=== PATIENT | female | born 1950 | race Caucasian/White ===

== ENCOUNTER 2019-07-26 11:07 | Emergency (ER) | payer MEDICARE, OTHER ==
[~2019-07-26] VITALS: Ht 149.9 cm; Wt 63.0 kg
[~2019-07-26 11:07] MED LIST: ENAL-197 PO; OMEP-113 PO
[2019-07-26 11:21] VITALS: BP 118/67
--- NOTE | 2019-07-26 11:25 | NUR ---
Patient ambulated to bed 10. RN evaluating patient at bedside.
--- NOTE | 2019-07-26 11:38 | NUR ---
PT PRESENTS TO ED WITH C/O LOWER ABD PAIN THAT RADIATES TO LOWER ABD X 1 DAY. PT STATES PAIN IS SHARP AND RATES PAIN 8/10 AT THIS TIME. PT STATES THAT SHE IS EXPERIENCING PAIN WITH URINATING X 1 DAY. PT STATES N/V X 3 DAYS, LAST EPISODE WAS 07/25/19. ER MD TO SEE PT. UZIEL HX: HTN RX: AMLODIPINE, ENALAPRIL, AND HYDROCHLOROTHIZAIDE
[2019-07-26] MEDS ORDERED: KETOROLAC 15 MG/ML VIAL IVP ONE (12:10)
[2019-07-26 12:38] LABS: BASOPHILS % (AUTO) 0.2 % (0.0-2.0); EOSINOPHILS % (AUTO) 0.1 % (0.0-4.0); HEMATOCRIT 41.1 % (36-48); HEMOGLOBIN 13.6 g/dL (12.0-16.0); LYMPHOCYTES # (AUTO) 2.2 K/uL (2.5-16.5); LYMPHOCYTES % (AUTO) 17.6 % (20.5-51.1); MEAN CORPUSCULAR HEMOGLOBIN 28 pg (27-31); MEAN CORPUSCULAR HGB CONC 33 g/dL (33-37); MEAN CORPUSCULAR VOLUME 85.4 fL (80-94); MONOCYTES # (AUTO) 0.8 K/uL (0.8-1.0); MONOCYTES % (AUTO) 6.4 % (1.7-9.3); NEUTROPHILS # (AUTO) 9.5 K/uL (1.8-7.7); NEUTROPHILS % (AUTO) 75.7 % (42.2-75.2); PLATELET COUNT (AUTO) 242 K/uL (140-450); RED BLOOD CELL COUNT(AUTO) 4.82 MIL/uL (4.20-5.40); RED CELL DISTRIBUTION WIDTH 13.8 % (11.6-13.7); WHITE BLOOD COUNT (AUTO) 12.5 K/uL (4.8-10.8)
[2019-07-26] MEDS ORDERED: AMLO10TA4 PO (12:46)
[2019-07-26] MEDS ORDERED: DOCU100C16 PO (12:46)
[2019-07-26] MEDS ORDERED: ATOR20TA PO (12:46)
[2019-07-26] MEDS ORDERED: LISI-420 PO (12:46)
[2019-07-26] MEDS ORDERED: METO25TA PO (12:46)
[2019-07-26 12:59] LABS: ALBUMIN 3.6 g/dL (3.4-5.0); CREATININE 0.9 mg/dL (0.6-1.3); POTASSIUM 3.2 mmol/L (3.5-5.1)
[2019-07-26 13:16] LABS: ANION GAP 13.1 (8-16); CARBON DIOXIDE 28.1 mmol/L (21-32)
[2019-07-26] MEDS ORDERED: NACL 0.9% 1,000 ML IV ONE (13:25)
--- NOTE | 2019-07-26 15:00 | NUR ---
PT SLEEPING AT BEDSIDE, ABLE TO VISUALIZE RISE AND FALL OF CHEST. WILL CONTINUE TO MONITOR.
[2019-07-26 15:22] VITALS: BP 118/67
--- NOTE | 2019-07-26 15:22 | NUR ---
Patient discharged with v/s stable. Written and verbal after care instructions given and explained. Patient verbalized understanding. Ambulatory with steady gait. All questions addressed prior to discharge. Advised to follow up with PMD.
--- NOTE | 2019-07-26 15:22 | NUR ---
IV removed, catheter intact and site benign. Applied folded 4x4 gauze and tape to stop bleeding.
--- NOTE | 2019-08-01 12:03 | NUR ---
Late entry. Confirmed with RN that 0.9 NS 100ml/hr IV completed at 1520
== END 2019-07-26 15:22 | disposition home or self-care (01) ==
LOC: MED 11:07
DX: R10.30 Lower abdominal pain, unspecified (principal); E87.6 Hypokalemia; E86.0 Dehydration; K21.9 Gastro-esophageal reflux disease without esophagitis; I11.0 Hypertensive heart disease with heart failure; I50.9 Heart failure, unspecified; Z87.448 Personal history of other diseases of urinary system; Z90.49 Acquired absence of other specified parts of digestive tract; Z98.890 Other specified postprocedural states
CPT/HCPCS: 36415; 74176; 80053; 81002; 83690; 85025; 96361; 96374; 99284; J1885

== ENCOUNTER 2019-07-26 23:38 | Emergency (ER) | payer MEDICARE, OTHER ==
[~2019-07-26] VITALS: Ht 154.9 cm; Wt 63.0 kg
[~2019-07-26 23:38] MED LIST changes: +AMLO10TA4 PO; +ATOR20TA PO; +DOCU100C16 PO; +LISI-420 PO; +METO25TA PO
[2019-07-26 23:40] VITALS: BP 120/74
--- NOTE | 2019-07-26 23:50 | NUR ---
SENT TO [facility]. S. SPECIMEN CUP GIVEN FOR URINE SAMPLE.
--- NOTE | 2019-07-27 00:18 | NUR ---
PT AMBULATED TO BED 04
--- NOTE | 2019-07-27 00:32 | NUR ---
69 Y/O FEMALE PRESENTS TO ED, C/O LOWER ABDOMINAL PAIN 04/30. PT STATES COMING TO THE ED AT 1100 FOR THE SAME REASON, D/C WITH AND DX WITH GERNERALIZED ABDOMINAL PAIN, NO RX PROVIDED. PT STATES PAIN WORSENED. PT TOOK 400 MG MOTRIN PRIOR TO FIRST VISIT AT ED. STATES HAVING BURNING SENSATION VOIDING. PAIN DOES NOT RADIATE. BS ACTIVE X4 QUADRANTS. ABD SOFT AND TENDER ON PALPATION. C/O INTERMITTENT DIARREAH SINCE LAST THURSDAY. 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
[2019-07-27 01:38] LABS: APPEARANCE,URINE SL CLOUDY (CLEAR); BILIRUBIN,URINE NEGATIVE (NEGATIVE); BLOOD, URINE 1+ (NEGATIVE); COLOR,URINE YELLOW (YELLOW); LEUKOCYTE ESTERASE ,URINE 1+ (NEGATIVE); NITRITE, URINE NEGATIVE (NEGATIVE); UGLUCOSE NEGATIVE (NEGATIVE)
[2019-07-27 01:54] LABS: URINE AMORPHOUS URATE 4+ /HPF (None Seen)
[2019-07-27] MEDS ORDERED: KETOROLAC 60 MG/2 ML VIAL IM ONE (02:20)
[2019-07-27 02:35] VITALS: BP 129/70
--- NOTE | 2019-07-27 02:35 | NUR ---
PT DISCHARGED WITH PAPERWORK. RX PYRIDIUM, ZOFRAN, MOTRIN, CIPRO, NORCO. EDUCATED PT REGARDING MEDICATIONS AND S/E. EDUCATED PT REGARDING D/C DIAGNOSIS AND INSTRUCTIONS. PT VERBALIZED UNDERSTANDING OF TEACHING. TOLD PT TO FOLLOW UP WITH PCP AND WHEN TO RETURN TO ED. PT VSS. ALL QUESTIONS ANSWERED.
== END 2019-07-27 02:35 | disposition home or self-care (01) ==
LOC: MED 23:38
DX: N39.0 Urinary tract infection, site not specified (principal); I11.0 Hypertensive heart disease with heart failure; I50.9 Heart failure, unspecified; K21.9 Gastro-esophageal reflux disease without esophagitis; Z87.442 Personal history of urinary calculi; Z90.49 Acquired absence of other specified parts of digestive tract; Z85.07 Personal history of malignant neoplasm of pancreas
CPT/HCPCS: 81001; 87086; 96372; 99283; J1885; 81002; 87186

== ENCOUNTER 2021-03-05 09:16 | Emergency (ER) | payer OTHER ==
[~2021-03-05] VITALS: Ht 162.6 cm; Wt 62.6 kg
[2021-03-05 09:17] VITALS: BP 128/43
--- NOTE | 2021-03-05 09:25 | NUR ---
PATIENT AMBULATED TO BED 12.
--- NOTE | 2021-03-05 09:30 | NUR ---
70 Y/O FEMALE BIB DAUGHTER C/O HEADACHE 02/28 DESCRIBES ACHING RADIATING TO NECK S/P FALL AT HOME TODAY. PT STATES SHE HIT THE BACK OF HER HEAD AND HAD LOC FOR "A FEW SECONDS". PT DENIES FEVER/CHILLS, DENIES N/V/D. PMH: HTN NKA
[2021-03-05] MEDS ORDERED: ACETAMINOPHEN 325 MG TAB PO ONE (10:00)
--- NOTE | 2021-03-05 10:17 | NUR ---
Pt taken to CT via W/C.
--- NOTE | 2021-03-05 10:26 | NUR ---
Pt brought back from CT via W/C.
[2021-03-05 11:21] VITALS: BP 128/43
== END 2021-03-05 11:23 | disposition home or self-care (01) ==
LOC: MED 09:16
DX: S13.4XXA Sprain of ligaments of cervical spine, initial encounter (principal); S09.90XA Unspecified injury of head, initial encounter; M54.6 Pain in thoracic spine; I11.0 Hypertensive heart disease with heart failure; I50.9 Heart failure, unspecified; E78.5 Hyperlipidemia, unspecified; K21.9 Gastro-esophageal reflux disease without esophagitis; Z90.49 Acquired absence of other specified parts of digestive tract; Z98.890 Other specified postprocedural states; W01.10XA Fall on same level from slipping, tripping and stumbling with subsequent striking against unspecified object, initial encounter; Y93.01 Activity, walking, marching and hiking; Y92.89 Other specified places as the place of occurrence of the external cause; Y99.8 Other external cause status
CPT/HCPCS: 70450; 72125; 99285

== ENCOUNTER 2022-08-14 10:19 | Emergency (ER) | payer OTHER ==
[~2022-08-14] VITALS: Ht 149.9 cm; Wt 58.1 kg
[2022-08-14 10:25] VITALS: BP 115/69
--- NOTE | 2022-08-14 10:30 | NUR ---
Pt ambulated with assistance to bed 03.
--- NOTE | 2022-08-14 10:30 | NUR ---
PT AMBULATED W/ ASSIST TO ROOM 3
--- NOTE | 2022-08-14 10:46 | NUR ---
72F presents to ED with c/o abd pain, diarrhea, N/V since yesterday, and urinary burning and pelvic pain since this morning. Pt reports multiple episodes of diarrhea with mid upper ABD pain that started yesterday morning. Pt states she drank herbal teas with mild relief. ABD and pelvic pain is intermittent, aching like, 8/10 pain. This morning began with pelvic pain with urinary burning. Pt reports chills, denies fevers, SOB, chest pain or any meds today. Pt changed into gown and placed on bedside monitor.
[2022-08-14] MEDS ORDERED: LOPERAMIDE 2 MG CAP PO ONE (11:05)
[2022-08-14 11:25] LABS: APPEARANCE,URINE CLEAR (CLEAR); BILIRUBIN,URINE NEGATIVE (NEGATIVE); BLOOD, URINE 1+ (NEGATIVE); COLOR,URINE YELLOW (YELLOW); LEUKOCYTE ESTERASE ,URINE NEGATIVE (NEGATIVE); NITRITE, URINE NEGATIVE (NEGATIVE); UGLUCOSE NEGATIVE (NEGATIVE)
[2022-08-14 11:26] LABS: BASOPHILS # (AUTO) 0.1 K/uL (0.00-0.22); BASOPHILS % (AUTO) 0.4 % (0.0-2.0); HEMATOCRIT 40.7 % (36-48); HEMOGLOBIN 13.5 g/dL (12.0-16.0); LYMPHOCYTES # (AUTO) 1.9 K/uL (2.5-16.5); LYMPHOCYTES % (AUTO) 10.6 % (20.5-51.1); MEAN CORPUSCULAR HEMOGLOBIN 28 pg (27-31); MEAN CORPUSCULAR HGB CONC 33 g/dL (33-37); MEAN CORPUSCULAR VOLUME 82.9 fL (80-94); MONOCYTES % (AUTO) 5.5 % (1.7-9.3); NEUTROPHILS # (AUTO) 14.7 K/uL (1.8-7.7); NEUTROPHILS % (AUTO) 83.5 % (42.2-75.2); PLATELET COUNT (AUTO) 233 K/uL (140-450); RED BLOOD CELL COUNT(AUTO) 4.91 MIL/uL (4.20-5.40); RED CELL DISTRIBUTION WIDTH 14.1 % (11.6-13.7); WHITE BLOOD COUNT (AUTO) 17.6 K/uL (4.8-10.8)
[2022-08-14 11:33] LABS: FINE GRANULAR CASTS,URINE 0-10 /LPF (None Seen); URINE AMORPHOUS URATE 1+ /HPF (None Seen)
[2022-08-14 11:39] LABS: ALBUMIN 3.6 g/dL (3.4-5.0); ANION GAP 14.9 (8-16); ASPARTATE AMINOTRANSFERASE 19 U/L (15-37); CARBON DIOXIDE 20.3 mmol/L (21-32); CHLORIDE 103 mmol/L (98-107); CREATININE 1.2 mg/dL (0.6-1.3); GLUCOSE 166 mg/dL (74-106); LIPASE 34 U/L (73-393); POTASSIUM 3.2 mmol/L (3.5-5.1); SODIUM SERUM 135 mmol/L (136-145); UREA NITROGEN, BLOOD 35 mg/dL (7-18)
[2022-08-14] MEDS ORDERED: CEPH-588 PO (12:11)
[2022-08-14] MEDS ORDERED: cephALEXin 500 MG CAP PO ONE (12:20)
--- NOTE | 2022-08-14 12:24 | NUR ---
Pt taken to CT via w/c.
--- NOTE | 2022-08-14 12:36 | NUR ---
Pt brought back from CT via w/c.
[2022-08-14 13:30] VITALS: BP 96/56
--- NOTE | 2022-08-14 13:30 | NUR ---
Patient discharged with v/s stable. Written and verbal after care instructions ABOUT UTI AND DIARRHEA given and explained. Patient alert, oriented and verbalized understanding of instructions. Ambulatory with steady gait. All questions addressed prior to discharge. ID band removed. Patient advised to follow up with PMD. Rx of KEFLEX given. Patient educated on indication of medication including possible reaction and side effects. Opportunity to ask questions provided and answered.
[2022-08-14] MEDS ORDERED: ONDA-188 SL (13:44)
== END 2022-08-14 13:30 | disposition home or self-care (01) ==
LOC: MED 10:19
DX: N39.0 Urinary tract infection, site not specified (principal); K21.9 Gastro-esophageal reflux disease without esophagitis; N20.0 Calculus of kidney; I50.9 Heart failure, unspecified
CPT/HCPCS: 36415; 80053; 81001; 83690; 85025; 87086; 99284

== ENCOUNTER 2023-06-13 16:26 | Emergency (ER) | payer OTHER ==
[~2023-06-13] VITALS: Ht 152.4 cm; Wt 55.3 kg
[~2023-06-13 16:26] MED LIST changes: -AMLO10TA4 PO; -ATOR20TA PO; +CEPH-588 PO; -DOCU100C16 PO; -ENAL-197 PO; -LISI-420 PO; -METO25TA PO; -OMEP-113 PO; +ONDA-188 SL
[2023-06-13 16:41] VITALS: BP 144/55; PULSE 78; RESP 18; TEMP 97.9; O2SAT 100
[2023-06-13] MEDS ORDERED: ONDANSETRON 4 MG/2 ML VIAL IVP ONE (17:00)
[2023-06-13] MEDS ORDERED: NACL 0.9% 1,000 ML IV ONE (17:00)
[2023-06-13] MEDS ORDERED: FAMOTIDINE 20 MG/2 ML VIAL IVP ONE (17:00)
[2023-06-13] MEDS ORDERED: ALUMINUM HYD/MAG/SIMETHICONE 30 ML UDC PO ONE (17:00)
[2023-06-13 17:24] LABS: APPEARANCE,URINE CLEAR (CLEAR); BILIRUBIN,URINE NEGATIVE (NEGATIVE); BLOOD, URINE NEGATIVE (NEGATIVE); COLOR,URINE YELLOW (YELLOW); LEUKOCYTE ESTERASE ,URINE NEGATIVE (NEGATIVE); NITRITE, URINE NEGATIVE (NEGATIVE); PH,URINE 7.5 (5.0-9.0); PROTEIN,URINE NEGATIVE (NEGATIVE); UGLUCOSE NEGATIVE (NEGATIVE); UROBILINOGEN,URINE 0.2 EU/dL (0.2 - 1)
[2023-06-13 17:27] LABS: BASOPHILS % (AUTO) 0.3 % (0.0-2.0); EOSINOPHILS % (AUTO) 0.2 % (0.0-4.0); HEMATOCRIT 37.4 % (36-48); LYMPHOCYTES # (AUTO) 1.2 K/uL (2.5-16.5); LYMPHOCYTES % (AUTO) 22.5 % (20.5-51.1); MEAN CORPUSCULAR HEMOGLOBIN 29 pg (27-31); MEAN CORPUSCULAR HGB CONC 35 g/dL (33-37); MEAN CORPUSCULAR VOLUME 82.1 fL (80-94); MONOCYTES # (AUTO) 0.4 K/uL (0.8-1.0); MONOCYTES % (AUTO) 6.7 % (1.7-9.3); NEUTROPHILS # (AUTO) 3.8 K/uL (1.8-7.7); NEUTROPHILS % (AUTO) 70.3 % (42.2-75.2); PLATELET COUNT (AUTO) 276 K/uL (140-450); RED BLOOD CELL COUNT(AUTO) 4.56 MIL/uL (4.20-5.40); RED CELL DISTRIBUTION WIDTH 14.4 % (11.6-13.7); WHITE BLOOD COUNT (AUTO) 5.4 K/uL (4.8-10.8)
[2023-06-13 17:45] LABS: ALANINE AMINOTRANSFERASE 31 U/L (12-78); ALBUMIN 3.6 g/dL (3.4-5.0); ALKALINE PHOSPHATASE 80 U/L (50-136); ANION GAP 12.7 (8-16); ASPARTATE AMINOTRANSFERASE 21 U/L (15-37); CALCIUM 9.6 mg/dL (8.5-10.1); CARBON DIOXIDE 26.1 mmol/L (21-32); CHLORIDE 101 mmol/L (98-107); CREATININE 0.8 mg/dL (0.6-1.3); GLUCOSE 147 mg/dL (74-106); LIPASE 56 U/L (73-393); SODIUM SERUM 137 mmol/L (136-145); TOTAL BILIRUBIN 0.6 mg/dL (0.0-1.0); TOTAL PROTEIN, SERUM 7.4 g/dL (6.4-8.2); UREA NITROGEN, BLOOD 8 mg/dL (7-18)
[2023-06-13 17:49] LABS: POTASSIUM 2.8 mmol/L (3.5-5.1)
[2023-06-13] MEDS ORDERED: POTASSIUM CHLORIDE 20% 40 MEQ/15 ML UDC PO ONE (17:55)
[2023-06-13] MEDS ORDERED: AMOX500C25 PO ×2 (20:21→20:55)
[2023-06-13] MEDS ORDERED: AZIT250T4 PO ×2 (20:21→20:55)
[2023-06-13 20:56] VITALS: BP 149/48; PULSE 81; RESP 17; TEMP 97.9; O2SAT 97
== END 2023-06-13 20:56 | disposition home or self-care (01) ==
LOC: MED 16:26
DX: R53.1 Weakness (principal); J18.9 Pneumonia, unspecified organism; E87.6 Hypokalemia; R11.0 Nausea; R10.13 Epigastric pain; I11.0 Hypertensive heart disease with heart failure; E11.9 Type 2 diabetes mellitus without complications; K21.9 Gastro-esophageal reflux disease without esophagitis; I50.9 Heart failure, unspecified; Z87.442 Personal history of urinary calculi; Z88.8 Allergy status to other drugs, medicaments and biological substances; Z79.899 Other long term (current) drug therapy; Z98.890 Other specified postprocedural states
CPT/HCPCS: 36415; 70450; 71045; 74177; 80053; 81003; 83690; 84484; 85025; 93005; 96361; 96374; 96375; 99285; J2405; J3490; J7030; Q9967